=== PATIENT | male | born 1990 | race African-American/Black ===

== ENCOUNTER 2017-12-12 19:40 | Inpatient (IN) ==
[2017-12-12] MEDS ORDERED: Haloperidol Inj 5 MG/ML Ampul IV.PUSH ONE (20:03)
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
[2017-12-12 20:38] LABS: Baso % (Auto) 0.2 % (0.0-2.0); Hemoglobin 14.1 gm/dL (13.0-17.0); Lymph # (Auto) 0.7 th/mm3 (1.0-4.8); Lymph % (Auto) 7.7 % (9.0-44.0); Mean Corpuscular HGB Conc 32.8 % (32.0-36.0); Mean Corpuscular Hemoglobin 28.2 pg (27.0-34.0); Mean Corpuscular Volume 85.9 fL (80.0-100.0); Mean Platelet Volume 7.8 fL (7.0-11.0); Mono # (Auto) 0.9 th/mm3 (0.0-0.9); Mono % (Auto) 9.8 % (0.0-8.0); Neut # (Auto) 7.6 th/mm3 (1.8-7.7); Neut % (Auto) 82.3 % (16.0-70.0); Platelet Count 215 th/mm3 (150-450); Red Cell Distribution Width 14.2 % (11.6-17.2); White Blood Count 9.3 th/mm3 (4.0-11.0)
[2017-12-12] MEDS ORDERED: Sod Chloride 0.9% Inj 1,000 ML IV.SIG ONE ×2 (20:47→21:43)
[2017-12-12 20:54] LABS: Alanine Aminotransferase 29 U/L (12-78)
[2017-12-12 21:04] LABS: Alkaline Phosphatase 56 U/L (45-117); Total Protein 8.2 g/dL (6.4-8.2)
[2017-12-12 21:08] LABS: Albumin 4.8 g/dL (3.4-5.0); Anion Gap 14 meq/L (5-15); Aspartate Aminotransferase 46 U/L (15-37); Blood Urea Nitrogen 24 mg/dL (7-18); Calcium 9.7 mg/dL (8.5-10.1); Carbon Dioxide 21.3 meq/L (21.0-32.0); Chloride 102 meq/L (98-107); Glomerular Filtration Rate 39 mL/min (>89); Glucose,Random 124 mg/dL (74-106); Potassium 3.9 meq/L (3.5-5.1); Sodium 137 meq/L (136-145)
[2017-12-12 23:15] LABS: Amphetamine Screen,Urine Pos (Neg); Barbiturate Screen,Urine Neg (Neg); Cannabinoid Screen,Urine Pos (Neg); Cocaine Screen,Urine Neg (Neg)
[2017-12-12 23:16] LABS: Opiate Screen,Urine Neg (Neg)
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
[2017-12-13] MEDS ORDERED: Acetaminophen 325 MG Tablet PO PRN (17:37)
[2017-12-13] MEDS ORDERED: Haloperidol Inj 5 MG/ML Ampul IM PRN (17:37)
[2017-12-13] MEDS ORDERED: Aluminum/Magnesium/Simethacone Susp 30 ML UDC PO PRN (17:37)
[2017-12-14 11:24] LABS: Carbon Dioxide 25.5 meq/L (21.0-32.0); Chol/HDL Ratio 3.9 Ratio; HDL Cholesterol 45.1 mg/dL (40.0-60.0); Potassium 3.8 meq/L (3.5-5.1); Thyroid Stimulating Hormone 0.557 uIU/mL (0.358-3.740)
[2017-12-14] MEDS ORDERED: Aluminum/Magnesium/Simethacone Susp 30 ML UDC PO PRN (12:00)
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
[2017-12-14] MEDS: QUEtiapine 25 MG Tablet PO SCH ×2 (13:35→19:07)
[2017-12-14 18:00] LABS: Hemoglobin A1c 4.4 % (4.3-6.0)
--- NOTE | 2017-12-14 21:47 | ECG ---
Date Performed: 12/14/2017 Time Performed: 09:41:08 PTAGE: 27 years EKG: Sinus rhythm NORMAL ECG NO PREVIOUS TRACING DOCTOR: Rose Guerra Interpretating Date/Time 12/14/2017 21:46:52
[2017-12-15] MEDS: QUEtiapine 25 MG Tablet PO SCH ×3 (10:42→18:25)
--- NOTE | 2017-12-15 12:04 | P.PNPSY ---
Subjective Remarks: Patient seen in day room with floor staff, chart reviewed, patient discussed with nurse. Patient continues somewhat vigilant paranoid and distractible. States the voices persist. Says his sleep well better but still disrupted. He still vigilant and somewhat fearful for his safety. Visual contract to do no harm. We will increase the scheduled daily Seroquel to 50 mg 3 times a day increase the at bedtime Seroquel to 200 mg at bedtime Review of Systems All other systems reviewed negative except as stated in HPI Mental Status Examination Appearance: Appropriate Consciousness: Alert Orientation: x4 Motor Activity: Normal gait Speech: Unremarkable, Slow Language: Adequate Fund of Knowledge: Adequate Attention and Concentration: Adequate (Fair) Memory: Unremarkable Mood: Sad, Anxious (Depressed and anxious) Affect: Other (Decreased range and intensity) Thought Process & Associations: Intact, Logical Thought Content: Hallucinations, Delusional Hallucination Type: Auditory Delusion Type: Paranoid Suicidal Ideation: No Suicidal Plan: No (Contracts for safety in the hospital) Suicidal Intention: No Homicidal Ideation: No Homicidal Plan: No Homicidal Intention: No Insight: Fair Judgment: Impulsive Assessment and Plan - Assessment (1) Substance-induced psychotic disorder Code(s): F19.959 - Other psychoactive substance use, unspecified with psychoactive substance-induced psychotic disorder, unspecified Status: Acute (2) Schizophrenia Code(s): F20.9 - Schizophrenia, unspecified Status: Acute (3) PTSD (post-traumatic stress disorder) Code(s): F43.10 - Post-traumatic stress disorder, unspecified Status: Acute (4) Amphetamine abuse Code(s): F15.10 - Other stimulant abuse, uncomplicated Status: Acute (5) Marijuana abuse Code(s): F12.10 - Cannabis abuse, uncomplicated Status: Acute - Plan Plan: Patient continues psychotic with auditory hallucinations vigilance and some mild paranoia. Please see medication adjustments above Justification for Continued Inpatient Stay: At this time patient would decompensate a place to a lower level of care Discharge Planning: Hopefully to return home with his family Request Healthcare Surrogate/Guardian Advocate?: No
[2017-12-16] MEDS: QUEtiapine 25 MG Tablet PO SCH ×3 (09:05→19:38)
--- NOTE | 2017-12-16 15:37 | P.PNPSY ---
Subjective Remarks: Patient was seen and case discussed with nursing. Today patient says he has persistent suicidal ideation. Plans include hanging himself. Patient was asked if there is a way to hang himself right now if he would do it and he responds with an affirmative answer. It is unclear if there is malingering involved were secondary gain of some sort. It does not appear he has had suicidal ideation with plan on admission over today per nursing. Mental Status Examination Appearance: Appropriate Consciousness: Alert Orientation: x4 Motor Activity: Normal gait Speech: Unremarkable, Slow Language: Adequate Fund of Knowledge: Adequate Attention and Concentration: Adequate (Fair) Memory: Unremarkable Mood: Sad, Anxious (Depressed and anxious) Affect: Other (Decreased range and intensity) Thought Process & Associations: Intact, Logical Thought Content: Hallucinations (Denies today), Delusional Hallucination Type: Auditory (Denies today) Delusion Type: Paranoid Suicidal Ideation: Yes Suicidal Plan: Yes (hang himself) Suicidal Intention: Yes Homicidal Ideation: No Homicidal Plan: No Homicidal Intention: No Insight: Fair Judgment: Impulsive Assessment and Plan - Assessment (1) Substance-induced psychotic disorder Code(s): F19.959 - Other psychoactive substance use, unspecified with psychoactive substance-induced psychotic disorder, unspecified Status: Acute (2) Schizophrenia Code(s): F20.9 - Schizophrenia, unspecified Status: Acute (3) PTSD (post-traumatic stress disorder) Code(s): F43.10 - Post-traumatic stress disorder, unspecified Status: Acute (4) Amphetamine abuse Code(s): F15.10 - Other stimulant abuse, uncomplicated Status: Acute (5) Marijuana abuse Code(s): F12.10 - Cannabis abuse, uncomplicated Status: Acute - Plan Plan: As a precaution we will order a one-to-one Justification for Continued Inpatient Stay: Patient would decompensate in a less restrictive setting Request Healthcare Surrogate/Guardian Advocate?: No
[2017-12-17] MEDS: QUEtiapine 25 MG Tablet PO SCH ×3 (09:14→18:36)
--- NOTE | 2017-12-17 14:43 | P.PNPSY ---
Subjective Remarks: Patient was seen and case discussed with nursing. Today, patient says he no longer has suicidal ideation intent or plan. He says he worked out his differences with his girlfriend on the phone. He does remain vague and somewhat superficial. Behaving well on the unit and has not had any outbursts Mental Status Examination Appearance: Appropriate Consciousness: Alert Orientation: x4 Motor Activity: Normal gait Speech: Unremarkable, Slow Language: Adequate Fund of Knowledge: Adequate Attention and Concentration: Adequate (Fair) Memory: Unremarkable Mood: Sad Affect: Other (Decreased range and intensity) Thought Process & Associations: Intact, Logical Thought Content: Hallucinations (Denies today), Delusional Hallucination Type: Auditory (Denies today) Delusion Type: Paranoid Suicidal Ideation: No Suicidal Plan: No Suicidal Intention: No Homicidal Ideation: No Homicidal Plan: No Homicidal Intention: No Insight: Fair Judgment: Impulsive Assessment and Plan - Assessment (1) Substance-induced psychotic disorder Code(s): F19.959 - Other psychoactive substance use, unspecified with psychoactive substance-induced psychotic disorder, unspecified Status: Acute (2) Schizophrenia Code(s): F20.9 - Schizophrenia, unspecified Status: Acute (3) PTSD (post-traumatic stress disorder) Code(s): F43.10 - Post-traumatic stress disorder, unspecified Status: Acute (4) Amphetamine abuse Code(s): F15.10 - Other stimulant abuse, uncomplicated Status: Acute (5) Marijuana abuse Code(s): F12.10 - Cannabis abuse, uncomplicated Status: Acute - Plan Plan: Continue current treatment plan Justification for Continued Inpatient Stay: Patient would decompensate in a less restrictive setting Request Healthcare Surrogate/Guardian Advocate?: No
[2017-12-18] MEDS: QUEtiapine 25 MG Tablet PO SCH ×3 (09:29→22:20)
[2017-12-18 17:03] VITALS: RESP 18
--- NOTE | 2017-12-18 20:44 | P.PNPSY ---
Subjective Remarks: Patient seen for follow, chart reviewed. Patient found lying hospital bed, asleep was able to wake up to interact with interview. Patient states that he is feeling "sleepy" reporting somnolent effects of medications but states that his weekend went "okay". Patient denying any other adverse drug reactions. Patient reported eating and drinking well, continues report his mood is depressed and continues with suicidal ideation, denying any perceptional services at this time. Review of Systems All other systems reviewed negative except as stated in HPI Mental Status Examination Appearance: Appropriate Consciousness: Alert Orientation: x4 Motor Activity: Normal gait Speech: Unremarkable, Slow Language: Adequate Fund of Knowledge: Adequate Attention and Concentration: Adequate (Fair) Memory: Unremarkable Mood: Sad Affect: Sad Thought Process & Associations: Intact, Logical Thought Content: Other ([place]) Hallucination Type: None Delusion Type: Paranoid Suicidal Ideation: Yes Suicidal Plan: No Suicidal Intention: No Homicidal Ideation: No Homicidal Plan: No Homicidal Intention: No Insight: Fair Judgment: Impulsive Assessment and Plan - Assessment (1) Substance-induced psychotic disorder Code(s): F19.959 - Other psychoactive substance use, unspecified with psychoactive substance-induced psychotic disorder, unspecified Status: Acute (2) Schizophrenia Code(s): F20.9 - Schizophrenia, unspecified Status: Acute (3) PTSD (post-traumatic stress disorder) Code(s): F43.10 - Post-traumatic stress disorder, unspecified Status: Acute (4) Amphetamine abuse Code(s): F15.10 - Other stimulant abuse, uncomplicated Status: Acute (5) Marijuana abuse Code(s): F12.10 - Cannabis abuse, uncomplicated Status: Acute - Plan Plan: Patient this time continues to endorse depressed mood along with continue suicide ideation, tolerating medications well and has a compliant with medications. We will continue to monitor mood and behavior. Continue current treatment. Discharge planning in progress. Justification for Continued Inpatient Stay: At risk for further decompensation if at lower level of care. Request Healthcare Surrogate/Guardian Advocate?: No
[2017-12-19 05:49] VITALS: BP 106/63; PULSE 75; TEMP 97.9; O2SAT 96
[2017-12-19] MEDS: QUEtiapine 25 MG Tablet PO SCH ×2 (09:00→13:34)
--- NOTE | 2017-12-19 14:45 | P.DSPSY ---
Psychiatry Discharge Summary Inpatient Psychiatric care?: Yes Advance Directives: No Mental Health Advance Directive: No Health Care Proxy: No - Admission Admission Date: December 13, 2017 17:36 - Admission Diagnosis (1) Marijuana abuse Code(s): F12.10 - Cannabis abuse, uncomplicated (2) PTSD (post-traumatic stress disorder) Code(s): F43.10 - Post-traumatic stress disorder, unspecified (3) Schizophrenia Code(s): F20.9 - Schizophrenia, unspecified Brief History: Patient is a 27-year-old -[place] male an [employer] with combat experience. Initially admitted under a Tucker act after patient was brought to [facility] he became out of control there the staff at that facility felt they were you behavior was beyond there ability to control fire police were called patient was aggressive with them to jumping on the fire engine needed to be taken off brought to this hospital. Patient seen and screened in the ED urine toxicology positive for amphetamines and marijuana. Negative for alcohol. At the present time patient sitting quietly in his room on [address] nurse Francine present throughout session. Patient is alert oriented calm tall muscular -[place] male sitting quietly on his bed he is quite soft spoken almost to a whisper with poor eye contact. He acknowledges history of PTSD with nightmares and flashbacks though he has no benefits through the [facility] at this time. He acknowledges daily marijuana use. States his amphetamine use is occasional and opportunistic. He denies mild use or abuse denies alcohol use. He acknowledges auditory hallucinations of a command threatening and intimidating nature. He does acknowledge being hospitalized at a facility in [place] a week or 2 ago for about 4 days was discharged on Seroquel but it appears it was too low a dose. At this time patient does denies suicidality. But he is distractible. Patient does have a girlfriend that he lives with who is supportive of him at the present time patient does meet criteria for further inpatient psychiatric hospitalization. They feel he does have capacity to sign for both his hospitalization and his medication/treatment thus I will lift Tucker act allow patient to sign voluntary. We will refrain from any benzodiazepines or opiates. We will start the patient on Seroquel 50 mg 3 times a day and 200 mg at at bedtime along with Atarax and Benadryl as needed. Hopeless be fairly short stay and we can come back up with services in the community patient states he in the past has been at a client with [email or web address] we may reunite them with him. Tobacco Use In Past 30 Days: Yes How Often Do You Have a Drink Containing Alcohol: 2 to 4 times a month Hospital Course: Patient's hospital course was uneventful, he showed compliance with medication from day 1 vigilance and paranoia slowly resolved the psychotic features slowly resolved. He had a good weekend. Patient was made voluntary yesterday did sign an hour OR. Patient seen by me today he denies suicidality homicidality voice or visions. He does have a place to stay. He is willing to be compliant with his medications and follow up through [facility]. He does have appointments made for there. At this time patient longer meets criteria for inpatient psychiatric hospitalization will be discharged today with Rx times a month to follow-up [facility] - Discharge Discharge Date: 12/19/17 - Discharge Diagnosis (1) Amphetamine abuse Diagnosis: Secondary Code(s): F15.10 - Other stimulant abuse, uncomplicated Status: Acute (2) Marijuana abuse Diagnosis: Secondary Code(s): F12.10 - Cannabis abuse, uncomplicated Status: Acute (3) PTSD (post-traumatic stress disorder) Diagnosis: Secondary Code(s): F43.10 - Post-traumatic stress disorder, unspecified Status: Acute (4) Schizophrenia Diagnosis: Principal Code(s): F20.9 - Schizophrenia, unspecified Status: Acute Discharge Disposition: Home - Discharge Instructions Discharge Diet: Regular Diet Activities You Can Perform: Regular- No Restrictions - Discharge Time > 30 minutes Mental Status Examination Appearance: Appropriate Consciousness: Alert Orientation: x4 Motor Activity: Normal gait Speech: Unremarkable, Slow Language: Adequate Fund of Knowledge: Adequate Attention and Concentration: Adequate (Fair) Memory: Unremarkable Mood: Sad Affect: Sad Thought Process & Associations: Intact, Logical Thought Content: Other ([place]) Hallucination Type: None Delusion Type: Paranoid Suicidal Ideation: Yes Suicidal Plan: No Suicidal Intention: No Homicidal Ideation: No Homicidal Plan: No Homicidal Intention: No Insight: Fair Judgment: Impulsive Discharge/Advance Care Plan - Results Vital Signs: Last Vital Signs Temp 97.9 F 12/19/17 05:46 Pulse 75 12/19/17 05:46 Resp 18 12/19/17 05:46 BP 106/63 12/19/17 05:46 Pulse Ox 96 12/19/17 05:46 Lab Results: Laboratory Results Hemoglobin A1c 4.4 % (4.3-6.0) 12/14/17 10:10 Triglycerides 93 mg/dL (42-150) 12/14/17 10:10 Cholesterol 176 mg/dL (120-200) 12/14/17 10:10 LDL Cholesterol, Calc 112 mg/dL (0-99) H 12/14/17 10:10 HDL Cholesterol 45.1 mg/dL (40.0-60.0) 12/14/17 10:10 TSH 0.557 uIU/mL (0.358-3.740) 12/14/17 10:10 Summary of Procedures: None done Pending Results: None - Medications Number of antipsychotic medications at discharge: 1 - Discharge Care Plan Goals to Promote Your Health: * To prevent worsening of your condition and complications * To maintain your health at the optimal level Directions to Meet Your Goals: Take your medications as prescribed Follow your dietary instruction Follow activity as directed Keep your appointments as scheduled Take your immunizations and boosters as scheduled If your symptoms worsen call your PCP, if no PCP go to Urgent Care Center or Emergency Room For 28/11 questions related to your inpatient stay or results of tests pending at discharge, please contact Dr. Husam Rivera MD at Smoking is Dangerous to Your Health. Avoid second hand smoking (3) Schizophrenia Qualifiers: Schizophrenia type: paranoid schizophrenia Qualified Code(s): F20.0 - Paranoid schizophrenia (4) Schizophrenia Qualifiers: Schizophrenia type: paranoid schizophrenia Qualified Code(s): F20.0 - Paranoid schizophrenia
== END 2017-12-19 15:35 | disposition home or self-care (01) ==
LOC: NEPD 19:40 → NEDA 12-13 17:36 → H270 12-13 18:23 → H4EA 12-17 11:02 → H270 12-17 11:05
PROVIDERS: ADMIT Psychiatry & Neurology Psychiatry; ATTEND Psychiatry & Neurology Psychiatry